=== PATIENT | male | born 1980 | race Caucasian/White ===

== ENCOUNTER 2018-09-18 20:25 | Emergency (ER) | payer SELFPAY ==
[~2018-09-18] VITALS: Ht 180.3 cm; Wt 95.7 kg
--- NOTE | 2018-09-18 20:45 | NUR ---
TECH AT BEDSIDE FOR EKG
[2018-09-18] MEDS ORDERED: IV NS 0.9% 1,000 ML BAG IV ONE (21:00)
[2018-09-18] MEDS ORDERED: NITROGLYCERIN 0.4 MG/TAB BOTTLE SL ONE (21:00)
[2018-09-18] MEDS ORDERED: ASPIRIN 325 MG TABLET PO ONE (21:00)
[2018-09-18 21:15] LABS: BASOPHILS # (AUTO) 0.1 /CMM (0.0-0.2); BASOPHILS % (AUTO) 0.9 % (0.0-2.0); EOSINOPHILS % (AUTO) 5.4 % (0.0-6.0); HEMATOCRIT 48 % (39-51); HEMOGLOBIN 16.6 g/dL (13.5-17.5); LYMPHOCYTES # (AUTO) 2.1 /CMM (0.8-4.8); LYMPHOCYTES % (AUTO) 27.6 % (20.0-44.0); MEAN CORPUSCULAR HGB CONC 35 g/dl (31.0-36.0); MEAN CORPUSCULAR VOLUME 95 fL (80-96); MONOCYTES # (AUTO) 0.9 /CMM (0.1-1.30); MONOCYTES % (AUTO) 11.8 % (2.0-12.0); NEUTROPHILS # (AUTO) 4.2 /CMM (1.8-8.9); NEUTROPHILS % (AUTO) 54.3 % (43.0-81.0); PLATELET COUNT (AUTO) 201 /CMM (150-450); RED BLOOD CELL COUNT(AUTO) 5.05 MIL/uL (4.5-6.0); WHITE BLOOD COUNT (AUTO) 7.8 K/uL (4.3-11.0)
[2018-09-18] MEDS ORDERED: ASPIRIN 325 MG TABLET ONE (21:18)
[2018-09-18] MEDS ORDERED: NITROGLYCERIN 0.4 MG/TAB BOTTLE ONE (21:18)
[2018-09-18 21:25] LABS: CALCIUM, SERUM 9.2 mg/dL (8.5-10.1); CARBON DIOXIDE 28 mmol/L (21-32); CHLORIDE 101 mmol/L (98-107); CREATININE 1.1 mg/dL (0.6-1.3); GLUCOSE 131 mg/dL (74-106); POTASSIUM 3.7 mmol/L (3.5-5.1); SODIUM SERUM 141 mmol/L (136-145); UREA NITROGEN, BLOOD 12 mg/dL (7-18)
--- NOTE | 2018-09-18 21:26 | NUR ---
BP 162/96. MD AWARE. V/O TO HOLD NITRO SL.
--- NOTE | 2018-09-18 21:27 | NUR ---
RADIOLOGY AT BEDSIDE FOR XRAY
[2018-09-18 21:59] VITALS: BP 147/98
[2018-09-18 22:33] LABS: APPEARANCE,URINE Clear (CLEAR); BILIRUBIN,URINE Negative (NEGATIVE); BLOOD, URINE Negative Ery/uL (NEGATIVE); COLOR,URINE Yellow (YELLOW); KETONES,URINE Negative (NEGATIVE); LEUKOCYTE ESTERASE ,URINE Negative (NEGATIVE); NITRITE, URINE Negative (NEGATIVE); PH,URINE 6.5 (5.0-8.0); PROTEIN,URINE Negative (NEGATIVE); UGLUCOSE Negative (NEGATIVE); UROBILINOGEN,URINE 0.2 EU/dL (0.2)
--- NOTE | 2018-09-18 23:15 | NUR ---
TECH AT BEDSIDE FOR REPEAT EKG
--- NOTE | 2018-09-18 23:52 | NUR ---
IV removed. Catheter intact and site benign. Pressure and 4x4 applied to site. No bleeding noted.Patient discharged to home in stable condition. Written and verbal after care instructions given. Patient verbalizes understanding of instruction. PT AMBULATORY WITH STEADY GAIT ACCOMPANIED BY FRIEND.
== END 2018-09-18 23:53 | disposition home or self-care (01) ==
LOC: ER 20:29
DX: R07.89 Other chest pain (principal); I10 Essential (primary) hypertension; R00.0 Tachycardia, unspecified
CPT/HCPCS: 36415; 71045; 80048; 80305; 81001; 84484; 85025; 93005 ×2; 99284; J7030; 81000-TC